=== PATIENT | male | born 1980 | race African-American/Black ===

== ENCOUNTER 2019-10-09 10:53 | Emergency (ER) | payer OTHER ==
[~2019-10-09] VITALS: Ht 177.8 cm; Wt 93.0 kg
[~2019-10-09 10:53] MED LIST: HYDROCODONE-AP1 EAC6 PO; IBUPROFEN 800800 M1 PO
[2019-10-09] MEDS ORDERED: NORCO 5-325 TA1 EAC1 PO (11:58)
[2019-10-09] MEDS ORDERED: BACTRIM DS TAB1 EAC1 PO (11:59)
[2019-10-09 12:27] VITALS: BP 118/80
== END 2019-10-09 12:29 | disposition home or self-care (01) ==
LOC: M.ERS 10:53
DX: L02.31 Cutaneous abscess of buttock (principal); Z88.1 Allergy status to other antibiotic agents